=== PATIENT | male | born 1980 | race Caucasian/White ===

== ENCOUNTER 2025-07-29 08:01 | Outpatient (NON) | payer OTHER, SELFPAY ==
--- NOTE | 2025-07-29 | S_PTH ---
PATIENT: Raul Stevens LOC: [facility]#:[id number] AGE/SX: 45/M ROOM: RE07/29/[address]: Andrew Slade DO : 1980 BED: DIS: 07/29/2025 SPEC #: [id number] RECD: 07/30/25 08:27 STATUS: RUFINO REHanny #: [id number] ANDRADE: 07/29/25 00:[address]: Andrew Slade DEPT: [facility] Surgical RECD BY: Patsy Mckay ENTERED: 07/30/25 08:28 SP TYPE: Surgical OTHR DR: Lorri Omalley PA-C Tissues: A - Rectal Polyp Procedures: Hematoxylin and Eosin Stain Gross and Microscopic Level 4
--- OUTSIDE RECORDS SUMMARY | 2025-07-30 08:11 | XMS_ITS | Clinical Summary ---
Author Organization [facility] [address] [facility] Address [address] [place] [phone] Care Team Providers Care Syrup Mixer Name Role Phone Aubrey Garcia MD Unavailable Lorri Omalley Primary Care Provider [phone] Allergies Active Allergy Reactions Criticality Noted Date [...] Type Department Care Team Description 06/04/2025 Telephone [facility] [address] [place] [phone] Joao Baxter II, MD 06/03/2025 Imaging Exam [facility] [address] [place] [phone] Joao Baxter II, MD Chronic pansinusitis (Primary Dx) 05/06/2025 8:30 AM CDT Office Visit [facility] [address] [place] [phone] Joao Baxter II, MD Chronic pansinusitis (Primary Dx); Benign paroxysmal positional vertigo, unspecified laterality; Non-seasonal allergic rhinitis due to pollen 05/06/2025 8:00 AM CDT Procedure visit [facility] Otolaryngology [address] [place] [phone] Nicole Garber Au.D. Dizziness and giddiness (Primary [...] Care Team (Latest Contact Info) Description 08/14/2025 12:19 PM CDT Hospital Encounter [facility] OR [address] [place] [phone] Joao Baxter II, MD [address] [place] [address] 08/14/2025 12:19 PM CDT - 08/14/2025 2:24 PM CDT Surgery [facility] OR [address] [place] [phone] Joao Baxter II, MD [address] [place] [address] BILATERAL ENDOSCOPIC MAXILLARY ANTROSTOMIES WITH TISSUE REMOVAL Scheduled Procedures Name Priority Associated Diagnoses Date/Ti me ENDOSCOPIC SINUS SURGERY. Deviated nasal septum Hypertrophy of nasal turbinates Chronic maxillary sinusitis 08/14/2025 12:19 PM CDT SEPTOPLASTY. Deviated nasal septum Hypertrophy of nasal turbinates Chronic maxillary sinusitis 08/14/2025 12:19 PM CDT EXCISION INFERIOR TURBINATE. Deviated nasal septum Hypertrophy of nasal turbinates Chronic maxillary sinusitis 08/14/2025 12:19 PM CDT Health Maintenance Due Date Last [...] a test for HCV RNA (test code 04922) is suggested. For additional information please refer to http://education.[employer]/faq/JBT22b4 (This link is being provided for informational/ educational purposes only.) 03/10/2020 1:10 PM CDT 03/10/2020 1:12 PM CDT Narrative [facility] - 03/12/2020 11:56 AM CDT COLLECTION REQUIREMENTS NOT MET. PATIENT ADVISED TO RETURN. [facility] - GENE RAL ORDERABLES Final Result [facility] [id number] [address] [phone] from Last 3 Months or Most Recently Relevant to Health Maintenance Insurance [facility] HMO/PPO Address: [address] [address] [place] [address] Care Teams Syrup Mixer Relationship Specialty Start Date End Date Lorri Omalley PA [address] [place], [place] [phone] PCP - General Family Practice 03/01/25 Aubrey Garcia MD [address] [place] [address] Consulting Physician Rheumatology 02/27/20
--- OUTSIDE RECORDS SUMMARY | 2025-07-30 08:11 | XMS_ITS | Encounter Summary ---
Author Organization [facility] Address [address] [place] [address] Phone Care Team Providers Care Metal Cut Off Saw Tender Name Role Phone Aubrey Garcia MD Unavailable [phone] Lorri Omalley Primary Care Provider [phone] Encounter Details Date Type Department Care Team (Late st Contact Info) Description 06/03/2025 Imaging Exam [facility] Otolaryngology [address] [place] [phone] Joao Baxter II, MD [address] [place], [place] [address] [address] Chronic pansinusitis (Primary Dx) Social [...] Description 08/14/2025 12:19 PM CDT Hospital Encounter [facility] OR [address] [place] [phone] Joao Baxetr II, MD [address] [facility] [address] 08/14/2025 12:19 PM CDT - 08/14/2025 2:24 PM CDT Surgery [facility] [place] [address] [place] [address] Jooa Baxter II, MD [address] [place] [address] BILATERAL ENDOSCOPIC MAXILLARY ANTROSTOMIES WITH TISSUE REMOVAL Scheduled Procedures Name Priority Associated Diagnoses Date/Ti ia ENDOSCOPIC SINUS SURGERY. Deviated nasal septum Hypertrophy of nasal turbinates Chronic maxillary sinusitis 08/14/2025 12:19 PM CDT SEPTOPLASTY. Deviated nasal septum Hypertrophy of nasal turbinates Chronic maxillary sinusitis 08/14/2025 12:19 PM CDT EXCISION INFERIOR TURBINATE. Deviated nasal septum Hypertrophy of nasal turbinates Chronic maxillary sinusitis 08/14/2025 12:19 PM CDT documented as of this encounter Visit Diagnoses Diagnosis Chronic pansinusitis- Primary Other chronic sinusitis Deviated nasal septum Hypertrophy of nasal turbinates Chronic maxillary sinusitis documented in this encounter Care Teams Metal Cut Off Saw Tender Relationship Specialty Start Date End Date Lorri Omalley PA [address] [place] [phone] PCP - General Family Practice 03/01/25 Aubrey Garcia MD [facility] [place] [address] Consulting Physician Rheumatology 02/27/20 documented as of this encounter
== END 2025-07-29 08:02 | disposition home or self-care (01) ==
PROVIDERS: PCP Physician Assistant Medical; Visit Provider Surgery
DX: K63.5 Polyp of colon (principal); Z12.11 Encounter for screening for malignant neoplasm of colon
CPT/HCPCS: 88305

== ENCOUNTER 2025-07-29 08:19 | Day surgery (SDC) | payer OTHER, SELFPAY ==
[2025-06-04 08:19] VITALS: BMI 24.9
--- OUTSIDE RECORDS SUMMARY | 2025-07-29 08:38 | XMS_ITS | Clinical Summary ---
Author Organization [facility] [address] Address [address] [place] [id number] Care Team Providers Care Home Health Provider Name Role Phone Aubrey Garcia MD Unavailable [phone] Lorri Omalley Primary Care Provider [phone] Allergies Active Allergy Reactions Criticality Noted Date Comments Tramadol Other (See comments) 05/06/2025 Decreased blood pressure, fainting Medications Xiidra 5 % dropperette INSTILL 1 DROP INTO EACH EYE EVERY 12 HOURS 03/03/20 20 Active meloxicam (MOBIC) 15 mg tablet Take 1 tablet (15 mg total) by mouth daily 02/19/[address] (PROTONIX) 40 mg EC tablet Take 1 tablet (40 mg total) by mouth daily Active sertraline (ZOLOFT) 50 mg tablet Take 1 tablet (50 mg total) by mouth daily 04/12/20 25 Active omega-3 fatty acids 1,000 mg capsule Take 2,000 mg by mouth 2 (two) times a day Active testosterone cypionate (DEPO-TESTOTERO NE) 100 mg/mL injection INJECT 1.25 ML (CC) INTRAMUSCULARLY ONCE A WEEK. DISCARD REMAINDER 28 DAYS AFTER OPENING 04/01/20 25 Active multivit-min/fe rrous fumarate (MULTI VITAMIN ORAL) Take by mouth Active zinc gluconate 50 mg tablet Take 1 tablet (50 mg total) by mouth daily Active magnesium gluconate 200 mg tabletIndicatio ns:hypomagnesem ia 1 tablet (200 mg total) Active Active Problems Problem Noted Date Diagnosed Date Deviated nasal septum 07/03/2025 Hypertrophy of nasal turbinates 07/03/2025 Chronic maxillary sinusitis 07/03/2025 Benign paroxysmal positional vertigo 05/06/2025 Chronic pansinusitis 05/06/2025 Non-seasonal allergic rhinitis due to pollen 04/2025 Polyarthralgia 03/10/2020 Overview (03/25/2020): Prior n/v with tramadol X-ray 02/2020: SI joints: Bilateral SI joints well maintained without OA or erosion, multiple phleboliths in the pelvis L-spine: Mild endplate OA changes at L5-S1 with sclerosis. Mild disc space loss avise 02/2020: pos rod by laron only, but otherwise neg; other serologies unremarkable 40 yoM with a long standing history of lower back/SI joint pain without radicular symptoms. Prior MRI in 2001 displayed ddd per report, although not available for review. Symptoms typically most bothersome in the AM and improve with activities. Denies any significant peripheral joint complaints. Given his ocular complaints, cannot rule out uveitis and recommended further evaluation by ophthalmology, although to discuss with pcp. At this time, suspect symptoms are more likely due to mechanical/OA issue. With that said, inflammatory spondyloarthritis vs ankylosing spondylitis do remain on the differential. Will further evaluate with appropriate serologies, radiographs. Consider SI MRI depending on findings. Fu 2 weeks. Sooner if needed. Seen with Dr. Garcia. Will rx diclofenac 75 bid. Discussed side effects of the medication, including but not limited to GI upset, kidney, and ulcers. Assessment & Plan (03/25/2020 5:00 PM CDT): 40 yoM with a long standing history of lower back/SI joint pain without radicular symptoms. Prior MRI in 2001 displayed ddd per report, although not available for review. Symptoms typically most bothersome in the AM and improve with activities. Denies any significant peripheral joint complaints. Since last visit, patient denies significant improvement with diclofenac. Serologies, as above, were essentially unremarkable. SI joint xray did not display evidence for sacroiliitis. OA changes seen in the L spine. At this point, suspect most likely due to mechanical/OA cause. Will obtain MRI of SI/pelvis to ensure no evidence for sacroliitis. Will notify patient of results by phone. Otherwise, will have patient fu as needed or if any new symptoms arise. Seen with Dr. Garcia. Assessment & Plan (03/10/2020 1:05 PM CDT): 40 yoM with a long standing history of lower back/SI joint pain without radicular symptoms. Prior MRI in 2001 displayed ddd per report, although not available for review. Symptoms typically most bothersome in the AM and improve with activities. Denies any significant peripheral joint complaints. Given his ocular complaints, cannot rule out uveitis and recommended further evaluation by ophthalmology, although to discuss with pcp. At this time, suspect symptoms are more likely due to mechanical/OA issue. With that said, inflammatory spondyloarthritis vs ankylosing spondylitis do remain on the differential. Will further evaluate with appropriate serologies, radiographs. Consider SI MRI depending on findings. Fu 2 weeks. Sooner if needed. Seen with Dr. Garcia. Will rx diclofenac 75 bid. Discussed side effects of the medication, including but not limited to GI upset, kidney, and ulcers. Encounters Date Type Department Care Team Description 06/04/2025 Telephone [facility] [address] [place] [phone] Joao Baxter II, MD 06/03/2025 Imaging Exam [facility] [address] [place] [phone] Joao Baxter II, MD Chronic pansinusitis (Primary Dx) 05/06/2025 8:30 AM CDT Office Visit [facility] [address] [place] [phone] Joao Baxter II, MD Chronic pansinusitis (Primary Dx); Benign paroxysmal positional vertigo, unspecified laterality; Non-seasonal allergic rhinitis due to pollen 05/06/2025 8:00 AM CDT Procedure visit [facility] Ot[facility] [address] [place] [phone] Nicole Garber Au.D. Dizziness and giddiness (Primary Dx) from Last 3 Months Surgical History Surgery Date Site/Laterality Comments LASIK FINGER SURGERY NASAL TURBINATE REDUCTION Medical History Medical History Date Comments Allergies Anxiety GERD (gastroesophageal reflux disease) Sinusitis Ear problems Dizziness Tinnitus Nosebleed Sleep difficulties Family History Medical History Relation Name Comments Cancer Maternal Grandfather Heart disease Maternal Grandfather Cancer Mother's Brother Heart disease Mother's Brother Relation Name Status Comments Maternal Grandfather Mother's Brother Social History Tobacco Use Types Packs/Day Years Used Date Smoking Tobacco: Never Smokeless Tobacco: Never Tobacco Cessation:Counseling Given: Not Answered Sex and Gender Information Value Date Recorded Sex Assigned at Not on file Legal Sex Male 9:28 AM CDT Gender Identity Not on file Sexual Orientation Not on file Obstetrics History Last Filed Vital Signs Vital Sign Reading Time Taken Comments Blood Pressure 124/84 03/25/2020 2:52 PM CDT Pulse - - Temperature 36.8 C (98.2 F) 03/25/2020 2:52 PM CDT Respiratory Rate 17 05/06/2025 8:34 AM CDT Oxygen Saturation - - Inhaled Oxygen Concentration - - Weight 77.1 kg (170 lb) 05/06/2025 8:34 AM CDT Height 172.7 cm (5' 8) 05/06/2025 8:34 AM CDT Body Mass Index 25.85 05/06/2025 8:34 AM CDT Plan of Treatment Upcoming Encounters Date Type Department Care Team (Latest Contact Info) Description 08/14/2025 12:25 PM CDT Hospital Encounter [facility] [place] [address] [place] [phone] Joao Baxter II, MD [address] [place] [address] 08/14/2025 12:25 PM CDT - 08/14/2025 2:30 PM CDT Surgery [facility] [place] [address] [place] [phone] Joao Baxter II, MD [address] [place] [address] BILATERAL ENDOSCOPIC MAXILLARY ANTROSTOMIES WITH TISSUE REMOVAL Scheduled Procedures Name Priority Associated Diagnoses Date/Ti me ENDOSCOPIC SINUS SURGERY. Deviated nasal septum Hypertrophy of nasal turbinates Chronic maxillary sinusitis 08/14/2025 12:25 PM CDT SEPTOPLASTY. Deviated nasal septum Hypertrophy of nasal turbinates Chronic maxillary sinusitis 08/14/2025 12:25 PM CDT EXCISION INFERIOR TURBINATE. Deviated nasal septum Hypertrophy of nasal turbinates Chronic maxillary sinusitis 08/14/2025 12:25 PM CDT Health Maintenance Due Date Last Done Comments Colon Cancer Screening-Colonoscopy 1980 Depression Screening 1980 Varicella Vaccines (1 of 2 - 13+ 2-dose series) 01/04/1993 Hepatitis B Screening 01/04/1998 Regular Well Visit/Exam 18-64 01/04/1998 HPV Vaccines (1 - 3-dose SCD M series) 01/04/2007 Influenza Vaccine (#1) 2025 DTaP/Tdap/Td Vaccine (2 - Td or Tdap) 03/14/2027 03/14/2017 Hepatitis C Screening Completed 03/10/2020 Pneumococcal vaccine <65 Aged Out No longer eligible based on patient's age to complete this topic Procedures Procedure Name Priority Date/Time Associated Diagnosis Comments HEPATITIS C ANTIBODY Routine 03/10/2020 1:10 PM CDT from Last 3 Months or Most Recently Relevant to Health Maintenance Results * Hepatitis C antibody (03/10/2020 1:10 PM CDT) Hep C Ab NON-REACTI VE NON-REACT KATHY [facility] SIGNAL TO CUT-OFF 0.02 <1.00 [facility] Comment: HCV antibody was non-reactive. There is no laboratory evidence of HCV infection. In most cases, no further action is required. However, if recent HCV exposure is suspected, a test for HCV RNA (test code 50440) is suggested. For additional information please refer to http://education.[employer]/faq/THF60v3 (This link is being provided for informational/ educational purposes only.) 03/10/2020 1:10 PM CDT 03/10/2020 1:12 PM CDT Narrative [facility] - 03/12/2020 11:56 AM CDT COLLECTION REQUIREMENTS NOT MET. PATIENT ADVISED TO RETURN. [facility] MICROBIOLOG[facility] - GENE RAL ORDERABLES Final Result [facility] [id number] [address] [phone] from Last 3 Months or Most Recently Relevant to Health Maintenance Insurance Care Teams Home Health Provider Relationship Specialty Start Date End Date Lorri Omalley PA [address] [place], [place] [phone] PCP - General Family Practice 03/01/25 Aubrey Garcia MD [address] [place] [address] Consulting Physician Rheumatology 02/27/20
--- OUTSIDE RECORDS SUMMARY | 2025-07-29 08:38 | XMS_ITS | Encounter Summary ---
Author Organization [facility] Address [address] [place] [address] Phone Care Team Providers Care Residential Sales Executive Name Role Phone Aubrey Garcia MD Unavailable [phone] Lorri Omalley Primary Care Provider [phone] Encounter Details Date Type Department Care Team (Late st Contact Info) Description 06/03/2025 Imaging Exam [facility] Otol[facility]ology [address] [place] [phone] Joao Baxter II, MD [address] [place], [place] [address] [address] Chronic pansinusitis (Primary Dx) Social History Tobacco Use Types Packs/Day Years Used Date Smoking Tobacco: Never Smokeless Tobacco: Never Sex and Gender Information Value Date Recorded Sex Assigned at Not on file Legal Sex Male 9:28 AM CDT Gender Identity Not on file Sexual Orientation Not on file documented as of this encounter Plan of Treatment Upcoming Encounters Date Type Department Care Team (Latest Contact Info) Description 08/14/2025 12:25 PM CDT Hospital Encounter [facility] [place] [address] [place] [phone] Joao Baxter II, MD [address] [place] [address] 08/14/2025 12:25 PM CDT - 08/14/2025 2:30 PM CDT Surgery [facility] [place] [address] [place] [address] Joao Baxter II, MD [address] [facility] [place] [address] BILATERAL ENDOSCOPIC MAXILLARY ANTROSTOMIES WITH TISSUE REMOVAL Scheduled Procedures Name Priority Associated Diagnoses Date/Ti oh ENDOSCOPIC SINUS SURGERY. Deviated nasal septum Hypertrophy of nasal turbinates Chronic maxillary sinusitis 08/14/2025 12:25 PM CDT SEPTOPLASTY. Deviated nasal septum Hypertrophy of nasal turbinates Chronic maxillary sinusitis 08/14/2025 12:25 PM CDT EXCISION INFERIOR TURBINATE. Deviated nasal septum Hypertrophy of nasal turbinates Chronic maxillary sinusitis 08/14/2025 12:25 PM CDT documented as of this encounter Visit Diagnoses Diagnosis Chronic pansinusitis- Primary Other chronic sinusitis Deviated nasal septum Hypertrophy of nasal turbinates Chronic maxillary sinusitis documented in this encounter Care Teams Residential Sales Executive Relationship Specialty Start Date End Date Lorri Omalley PA [address] [place] [id number] PCP - General Family Practice 03/01/25 Aubrey Garcia MD [facility] [place] [address] Consulting Physician Rheumatology 02/27/20 documented as of this encounter
[2025-07-29 08:52] VITALS: BP 114/78; PULSE 76; RESP 16; TEMP 36.9; O2SAT 100
[2025-07-29] MEDS: LACTATED RINGERS 1,000 ML 150 ML IV CONT (09:00)
--- NOTE | 2025-07-29 09:10 | P.PNAN_ITS ---
Anes - Initial Pre Proc Eval Procedure: Operation Date: 07/29/25 10:00 Proposed Procedures p Screening Colonoscopy - Andrew Slade DO Date/Time: 07/29/25 09:10 Surgeon: Andrew Slade DO Pre Op Diagnosis: Neoplasm Screening Patient Data Age: 45 Gender: M Height: 1.75 m Weight: 75 kg Last Vital Signs Temp 98.4 F 07/29/25 08:52 Pulse 76 07/29/25 08:52 Resp 16 07/29/25 08:52 BP 114/78 07/29/25 08:52 Pulse Ox 100 07/29/25 08:52 O2 Del Method Room Air 07/29/25 08:52 Allergies Allergy/AdvReac Type Severity Reaction Status Date / Time tramadol AdvReac Hypotension Verified 07/29/25 08:51 Home Medications ?Medication ?Instructions ?Recorded ?Confirmed ?Type multivitamin 1 tablet PO DAILY 08/29/23 0 07/29/25 History omega-3 fatty acids 1,000 mg 1,000 mg PO DAILY 3 07/29/25 History capsule magnesium aspart,citrate,oxide 400 mg PO DAILY 5 07/29/25 History sertraline 50 mg tablet 50 mg PO DAILY #90 tabs 03/3107/29/25 Rx Held on 07/17/25. Instructions: Patient Condition pantoprazole 40 mg tablet,delayed 40 mg PO QAM #90 tab s 06/12/25 07/29/25 Rx release (Protonix) testosterone cypionate 100 mg/mL 125 mg (1.25 mL) IM W EEKLY #10 mL 06/14/25 07/29/25 Rx intramuscular oil meloxicam 15 mg tablet 15 mg PO DAILY #90 tabs 01/2207/29/25 Rx Patient hx anesthesia problems: none Family hx anesthesia problems: none Results Review: All pre-operative results and documents have been reviewed as part of the pre-operative evaluation. [facility] Past Medical History Medical History (Updated 06/03/25 @ 15:36 by Lorri Omalley PA-C) Family history of diabetes mellitus Palpitations Allergies GERD (gastroesophageal reflux disease) Left shoulder pain Fatigue Testosterone deficiency Annual physical exam Dry eyes Lumbar disc disease with radiculopathy Generalized arthritis Surgical History Surgical History No history of previous surgery Family History Family History Mother Breast cancer Depression Grandparent Malignant neoplasm of prostate Heart disease Diabetes mellitus Social History Social History (Updated 07/26/25 @ 08:27 by Norbert Ward) Social History: 07/25/25 Patient declined to complete SDOH Smoking status: Never smoker Alcohol intake: never Substance use: never Substance use type: does not use Do You Feel Safe in your Home?: Yes Lack of Transportation: No Lack of Food: Never True Current Housing: I Have Housing Concerned About Future Housing: No Difficulty Paying Gas/Electric Bills: No Difficulty Paying for Meds: No Currently Unemployed: No Education: Don't Know Difficulty w/ Childcare or Family Care: No Living arrangements: with family Additional living arrangements comments: mom Occupation/Education: occupation Additional occupation/education comments: [employer] Spiritual care concerns: No Agree to blood products: Yes Anes - Eval Final PreProcedure Day of Procedure 07/29/25 09:10 Heart: regular rate and rhythm Lungs: clear to auscultation Airway: Mallampati scale class 1 Neurological: alert and oriented Last oral intake: >/= 8 hours ASA classification: II Anesthetic plan: proceed Anesthesia type and monitoring: monitored anesthesia care Results Review: All pre-operative results and documents have been reviewed as part of the pre- operative evaluation. Informed Consent: The patient's anesthetic plan and its attendant risks and benefits were discussed with the patient/family/POA. Questions were solicited and answers provided to the satisfaction of the patient/family/POA.
--- NOTE | 2025-07-29 09:54 | WPDANESPN ---
Anes - Prog Note Post-Op Date/Time: 07/29/25 09:54 Vital Signs: Last Vital Signs Temp 98.4 F 07/29/25 08:52 Pulse 76 07/29/25 08:52 Resp 16 07/29/25 08:52 BP 114/78 07/29/25 08:52 Pulse Ox 100 07/29/25 08:52 O2 Del Method Room Air 07/29/25 08:52 Pain Score (VAS): no Patient Feedback: Patient satisfied with anesthetic care.
--- NOTE | 2025-07-29 10:05 | PM.IMHP ---
H&P: HPI History of Present Illness Date/Time: 07/29/25 10:05 Chief Complaint: screening for colorectal cancer Narrative: this is a 45-year-old man who presents for a colonoscopy. He did have a colonoscopy about 15 years ago which was normal. This was done for some abdominal cramping. He denies family history of colon cancer. He denies hematochezia or melena. Review of Systems Review of Systems: All systems reviewed & are unremarkable except as noted in HPI and below Constitutional: Constitutional: Denies chills, Denies fever(s), Denies headache(s) and Denies weight loss Eyes: Eyes: Denies change in vision ENT: Denies dizziness, Denies headache(s), Denies neck mass and Denies throat swelling Cardiovascular: Cardiovascular: Denies chest pain, Denies lightheadedness and Denies dyspnea Respiratory: Respiratory: Denies cough, Denies dyspnea and Denies wheezing Gastrointestinal: Gastrointestinal: Denies abdominal pain, Denies change in bowel habits, Denies nausea and Denies vomiting Genitourinary: Genitourinary: Denies hematuria and Denies dysuria Musculoskeletal: Musculoskeletal: Reports as per HPI Integumentary/Breasts: Skin/Breast: Reports as per HPI Neurologic: Denies dizziness and Denies headache(s) Allergic/Immunologic: Allergic/Immunologic: Denies throat swelling and Denies wheezing [facility] Past Medical History Medical History (Updated 07/29/25 @ 10:06 by Andrew Slade DO) Family history of diabetes mellitus Palpitations Allergies GERD (gastroesophageal reflux disease) Left shoulder pain Fatigue Testosterone deficiency Annual physical exam Dry eyes Lumbar disc disease with radiculopathy Generalized arthritis Surgical History Surgical History No history of previous surgery Family History Family History Mother Breast cancer Depression Grandparent Malignant neoplasm of prostate Heart disease Diabetes mellitus Social History Social History (Updated 07/26/25 @ 08:27 by Norbert Ward) Social History: 07/25/25 Patient declined to complete SDOH Smoking status: Never smoker Alcohol intake: never Substance use: never Substance use type: does not use Do You Feel Safe in your Home?: Yes Lack of Transportation: No Lack of Food: Never True Current Housing: I Have Housing Concerned About Future Housing: No Difficulty Paying Gas/Electric Bills: No Difficulty Paying for Meds: No Currently Unemployed: No Education: Don't Know Difficulty w/ Childcare or Family Care: No Living arrangements: with family Additional living arrangements comments: mom Occupation/Education: occupation Additional occupation/education comments: [employer] Spiritual care concerns: No Agree to blood products: Yes Meds Home Medications and Allergies Home Medications ?Medication ?Instructions ?Recorded ?Confirmed ?Type multivitamin 1 tablet PO DAILY 08/29/23 07/29/25 History omega-3 fatty acids 1,000 mg 1,000 mg PO DAILY 08/29/23 07/29/25 History capsule magnesium aspart,citrate,oxide 400 mg PO DAILY 11/27/24 07/29/25 History sertraline 50 mg tablet 50 mg PO DAILY #90 tabs 04/12/25 07/29/25 Rx Held on 07/17/25. Instructions: Patient Condition pantoprazole 40 mg tablet,delayed 40 mg PO QAM #90 tabs 06/12/25 07/29/25 Rx release (Protonix) testosterone cypionate 100 mg/mL 125 mg (1.25 mL) IM WEEKLY #10 mL 06/14/25 07/29/25 Rx intramuscular oil meloxicam 15 mg tablet 15 mg PO DAILY #90 tabs 07/03/25 07/29/25 Rx Allergies Allergy/AdvReac Type Severity Reaction Status Date / Time tramadol AdvReac Hypotension Verified 07/29/25 08:51 Vital Signs Vital Signs - 24 hr 07/29/25 08:52 Temperature 98.4 F Pulse Rate 76 Respiratory Rate 16 Blood Pressure 114/78 Pulse Oximetry 100 Oxygen Delivery Room Air Exam Const: General: no acute distress and alert Orientation/consciousness: patient oriented x3 HENMT: Head: normocephalic and atraumatic Ears: hearing grossly normal bilaterally Face/Nose/Sinus: Normal nares present Mouth: Yes Normal oral and palatal mucosa present Eyes: Periorbital: periorbital findings normal Sclera: sclerae normal EOM: EOMs intact bilaterally Neck: Neck: normal visual inspection, no lymphadenopathy and trachea midline Chest: Chest palpation & inspection: normal inspection of the chest Resp: Effort & Inspection: normal respiratory effort Auscultation: clear to auscultation bilaterally Cardio: Jugular venous distension: no JVD Rate: regular rate Rhythm: regular rhythm Heart sounds: S1 normal heart sound present and S2 normal heart sound present Peripheral pulses: Peripheral pulses 2+ throughout GI: Inspection: normal to inspection GI Palp: Yes Soft to palpation, No Tenderness to palpation present (GI), No Guarding due to palpation present (GI) and No Rebound tenderness present Percussion: Yes normal to percussion Auscultation: normal bowel sounds : General: Yes no CVA tenderness Back/Spine/Pelvis: Back: no CVA tenderness Neuro: General: patient oriented x3, no focal motor deficits and CN's II-XI intact bilaterally Cognition (Neuro): normal cognition Speech: normal speech Motor exam (neuro): 5/5 motor strength present throughout Extrem: General: capillary refill normal and no clubbing, cyanosis or edema Assessment and Plan Assessment and plan (1) Screening for colorectal cancer: Code(s): Z12.11 - Encounter for screening for malignant neoplasm of colon; Z12.12 - Encounter for screening for malignant neoplasm of rectum Status: Acute Assessment and Plan: I have recommended colonoscopy. I have discussed the procedure, risks, benefits, and alternatives. Questions were answered. Patient is agreeable to proceed.
[2025-07-29 10:28] VITALS: BP 99/71; PULSE 74; RESP 16; O2SAT 98
[2025-07-29 10:38] VITALS: BP 103/62; PULSE 66; RESP 20; O2SAT 99
[2025-07-29 10:48] VITALS: BP 107/76; PULSE 65; RESP 20; O2SAT 100
== END 2025-07-29 10:57 | disposition home or self-care (01) ==
PROVIDERS: PCP Physician Assistant Medical; Visit Provider Surgery
PROC: 0DJD8ZZ Inspection of Lower Intestinal Tract, Via Natural or Artificial Opening Endoscopic (ICD-10-PCS; CPT 45378; principal; 2025-07-29 10:00)
DX: Z12.11 Encounter for screening for malignant neoplasm of colon (principal); K62.1 Rectal polyp
CPT/HCPCS: 45385